=== PATIENT | male | born 1960 | race Caucasian/White ===

== ENCOUNTER 2019-03-27 05:34 | Emergency (ER) | payer OTHER ==
[~2019-03-27] VITALS: Ht 175.3 cm; Wt 100.7 kg
[2019-03-27 05:40] VITALS: BP 144/103
--- NOTE | 2019-03-27 05:50 | NUR ---
PT AMBULATED TO BED #9
--- NOTE | 2019-03-27 06:00 | NUR ---
PATIENT ASSESSMENT COMPLETE. PATIENT LYING SUPINE. FAMILY AT BEDISDE. WILL CONTINUE TO MONITOR.
--- NOTE | 2019-03-27 07:10 | NUR ---
BEDSIDE REPORT GIVEN TO JEAN OATES. TRANSFER OF CARE AT THIS TIME.
[2019-03-27] MEDS ORDERED: MORPHINE SULFATE 4 MG/ML SYR IVP ONE ×2 (07:40→09:00)
[2019-03-27] MEDS ORDERED: ONDANSETRON 4 MG/2 ML VIAL IVP ONE (07:40)
--- NOTE | 2019-03-27 07:45 | NUR ---
PT AMBULATED TO RESTROOM WITHOUT DIFFICULTY TO GIVE UA.
--- NOTE | 2019-03-27 07:55 | NUR ---
PT STATES HIS HAND FELT ITCHY AFTER ADMINISTRATION OF IVP MORPHINE. IV SITE NON-RED, CLEAN, DRY, NO SWELLING. PT WILL LET ME KNOW IF SYMPTOMS GET WORSE.
--- NOTE | 2019-03-27 08:15 | NUR ---
PT STATES HIS LEFT HAND/ARM IS NO LONGER ITCHING. THERE IS NO REDNESS, SWELLING. IV IS CLEAN AND INTACT.
--- NOTE | 2019-03-27 08:22 | NUR ---
PT TO X-RAY BY WHEELCHAIR.
[2019-03-27 09:02] LABS: BASOPHILS % (AUTO) 0.2 % (0.0-2.0); EOSINOPHILS % (AUTO) 0.1 % (0.0-4.0); HEMATOCRIT 44.3 % (36-52); HEMOGLOBIN 14.7 g/dL (12.0-18.0); LYMPHOCYTES # (AUTO) 0.8 K/uL (2.0-11.5); LYMPHOCYTES % (AUTO) 6.9 % (20.5-51.1); MEAN CORPUSCULAR HEMOGLOBIN 32 pg (27-31); MEAN CORPUSCULAR HGB CONC 33 g/dL (33-37); MEAN CORPUSCULAR VOLUME 95.3 fL (80-94); MONOCYTES # (AUTO) 0.3 K/uL (0.8-1.0); MONOCYTES % (AUTO) 2.8 % (1.7-9.3); NEUTROPHILS # (AUTO) 10.8 K/uL (1.8-7.7); PLATELET COUNT (AUTO) 152 K/uL (140-450); RED BLOOD CELL COUNT(AUTO) 4.64 MIL/uL (4.20-6.10)
[2019-03-27 09:13] LABS: APPEARANCE,URINE CLEAR (CLEAR); BILIRUBIN,URINE NEGATIVE (NEGATIVE); BLOOD, URINE TRACE-I (NEGATIVE); COLOR,URINE YELLOW (YELLOW); LEUKOCYTE ESTERASE ,URINE NEGATIVE (NEGATIVE); NITRITE, URINE NEGATIVE (NEGATIVE); UGLUCOSE NEGATIVE (NEGATIVE)
[2019-03-27 09:14] LABS: ANION GAP 14.7 (8-16); CARBON DIOXIDE 26.7 mmol/L (21-32); CREATININE 1.1 mg/dL (0.7-1.3); POTASSIUM 4.4 mmol/L (3.5-5.1)
[2019-03-27 09:20] LABS: TOTAL BILIRUBIN 0.5 mg/dL (0.0-1.0)
--- NOTE | 2019-03-27 09:21 | NUR ---
Dr. Cosme is re-evaluating the patient at bedside.
--- NOTE | 2019-03-27 09:24 | NUR ---
PT GIVEN ADDITIONAL DOSE OF MORPHINE FOR PAIN IVP. PT STATES HE DOES NOT FEEL THE ITCHING SENSATION WITH THIS DOSE OF PAIN MEDICATION.
[2019-03-27 09:30] LABS: RBC,URINE 0-5 /HPF (0-5); WBC,URINE 0-5 /HPF (0-5)
--- NOTE | 2019-03-27 09:54 | NUR ---
PT RESTING COMFORTABLY IN BED, EYES CLOSED. PT AT BEDSIDE.
[2019-03-27 10:34] VITALS: BP 130/80
--- NOTE | 2019-03-27 10:34 | NUR ---
Patient discharged with v/s stable. Written and verbal after care instructions given and explained. Patient alert, oriented and verbalized understanding of instructions. Ambulatory with steady gait. All questions addressed prior to discharge. ID band removed. Patient advised to follow up with PMD. Rx of LOLITA JAY given. Patient educated on indication of medication including possible reaction and side effects. Opportunity to ask questions provided and answered.
== END 2019-03-27 10:34 | disposition home or self-care (01) ==
LOC: MED 05:34
DX: R10.9 Unspecified abdominal pain (principal); Z98.890 Other specified postprocedural states
CPT/HCPCS: 36415; 74176; 80053; 81001; 83690; 85025; 96374; 96375; 96376; 99284; J2270; J2405